=== PATIENT | male | born 1965 | race Caucasian/White ===

== ENCOUNTER 2017-11-17 08:32 | Emergency (ER) | payer BC ==
[2017-11-17] MEDS: MORPHINE SULFATE 10 MG/ML VIAL. IV (09:20)
[2017-11-17] MEDS: KETOROLAC 30 MG/ML INJ. IV (09:20)
[2017-11-17] MEDS: MORPHINE SULFATE 10 MG/ML VIAL. IM (11:19)
== END 2017-11-17 11:50 | disposition home or self-care (01) ==
LOC: ER 11:50
DX: M54.12 Radiculopathy, cervical region (principal)
CPT/HCPCS: 96372; 96374; 96375; 99284; J1885; J2060; J2270